=== PATIENT | male | born 1950 | race Caucasian/White ===

== ENCOUNTER 2018-05-04 15:00 | Inpatient (IN) | payer MEDICARE ==
[~2018-05-04] VITALS: Ht 177.8 cm; Wt 94.4 kg
[~2018-05-04 15:00] MED LIST: ASPI-555 PO; LISI40TA4 PO; SIMV40TA5 PO
[2018-05-11 16:26] VITALS: BP 128/74
[2018-05-11 16:34] LABS: APPEARANCE,URINE CLEAR (CLEAR); BILIRUBIN,URINE Negative (NEGATIVE); COLOR,URINE Yellow (YELLOW); GLUCOSE, URINE (UA) Negative (NEGATIVE); KETONES,URINE Negative (NEGATIVE); LEUKOCYTE ESTERASE ,URINE Negative (NEGATIVE); NITRATE,URINE Negative (NEGATIVE); OCCULT BLOOD,URINE Negative (NEGATIVE); PROTEIN,URINE Negative (NEGATIVE)
[2018-05-11] MEDS ORDERED: METO-391 PO (16:41)
[2018-05-11] MEDS: CEFAZOLIN SODIUM 1 GM VIAL IVP SCH (17:00)
[2018-05-12] VITALS (18 sets, daily range): BP systolic 101–125; BP diastolic 55–74
[2018-05-12] MEDS ORDERED: CEFAZOLIN SODIUM 1 GM VIAL ONE ×2 (11:31→14:57)
[2018-05-12] MEDS ORDERED: LACTATED RINGERS 1000ML 1,000 ML IV ONE (11:31)
--- NOTE | 2018-05-12 11:50 | NUR ---
PUPIL OCCURRENCE: PATIENT STATED HAD LASIX ABOUT 15 YEARS AGO.
--- NOTE | 2018-05-12 11:50 | NUR ---
POTENTIAL FOR INFECTION: LEFT HIP / UPPER LEFT LEG SHAVED AND WIPED WITH CHRISTINA PER MARIA T GEORGES.
[2018-05-12] MEDS ORDERED: TRANEXAMIC ACID 1000MG/10ML IV ONE ×2 (14:57→19:37)
[2018-05-12] MEDS ORDERED: METOCLOPRAMIDE 10 MG/2 ML VIAL ONE (15:05)
[2018-05-12] MEDS ORDERED: OXYCODONE HCL 10 MG TAB.SR.12H PO ONE (15:06)
[2018-05-12] MEDS ORDERED: CELECOXIB 200 MG CAP ONE (15:06)
[2018-05-12] MEDS ORDERED: KETOROLAC TROMETHAMINE 15MG/ML ONE (15:06)
[2018-05-12] MEDS ORDERED: ACETAMINOPHEN EXTRA STRENGTH 500 MG TABLET ONE (15:06)
[2018-05-12] MEDS ORDERED: MIDAZOLAM HCL 1 MG/ML 2ML VIAL ONE (15:31)
[2018-05-12] MEDS ORDERED: ROPIVACAINE 0.5% 5MG/ML 30ML IJ ONE (15:35)
[2018-05-12] MEDS ORDERED: LIDOCAINE PF 2% 5ML ABBOJECT ONE (15:36)
[2018-05-12] MEDS ORDERED: SUCCINYLCHOLINE 200MG/10ML SYR ONE (15:36)
[2018-05-12] MEDS ORDERED: PROPOFOL 10 MG/ML 20ML VIAL IV ONE (15:39)
[2018-05-12] MEDS ORDERED: ONDANSETRON HCL 4 MG/2 ML VIAL ONE (15:40)
[2018-05-12] MEDS ORDERED: ROCURONIUM 10MG/1ML SYR 10 MG/ML ML ONE ×3 (15:41→18:22)
[2018-05-12] MEDS ORDERED: FENTANYL CITRATE PF 50 MCG/1 ML 2ML VIAL ONE (15:42)
[2018-05-12] MEDS ORDERED: EPHEDRINE SULFATE 50 MG/ML AMPULE ONE (15:45)
[2018-05-12] MEDS: CEFAZOLIN SODIUM 1 GM VIAL IVP SCH ×2 (16:20→23:08)
[2018-05-12] MEDS ORDERED: CEFAZOLIN SODIUM 1 GM VIAL IRRIG ONE (16:50)
[2018-05-12] MEDS ORDERED: CALCIUM CARBONATE 500 MG TABLET PO PRN (19:00)
[2018-05-12] MEDS ORDERED: LIDOCAINE HCL-MPF 1% 2ML VIAL IVP PRN (19:00)
[2018-05-12] MEDS ORDERED: DiphenhydrAMINE HCL 50 MG/ML VIAL IVP PRN (19:00)
[2018-05-12] MEDS ORDERED: TRAMADOL HCL 50 MG TABLET PO PRN (19:00)
[2018-05-12] MEDS ORDERED: ONDANSETRON HCL 4 MG/2 ML VIAL IVP PRN (19:00)
[2018-05-12] MEDS ORDERED: POTASSIUM CHLORIDE 10% ELIXIR 20 MEQ/15 ML UDCUP PO PRN (19:00)
[2018-05-12] MEDS ORDERED: POTASSIUM CHLORIDE 20MEQ/100ML 100 ML IV PRN (19:00)
[2018-05-12] MEDS ORDERED: FERROUS FUMARATE 324 MG TABLET PO PRN (19:00)
[2018-05-12] MEDS ORDERED: OXYCODONE HCL 5 MG TAB PO PRN (19:00)
[2018-05-12] MEDS ORDERED: POTASSIUM CHLORIDE 20 MEQ ERTAB PO PRN (19:00)
[2018-05-12] MEDS ORDERED: KETOROLAC TROMETHAMINE 15MG/ML IV PRN (19:00)
[2018-05-12] MEDS ORDERED: GLYCOPYRROLATE 1 MG/5 ML SYRINGE ONE (19:07)
[2018-05-12] MEDS ORDERED: NEOSTIGMINE 5MG/5ML SYR IV ONE (19:08)
--- NOTE | 2018-05-12 20:30 | NUR ---
POST OP PATIENT ARRIVED FROM PACU AAOX3 BUT DROWSY WITH O2 AT 3 LPM VIA NC. REILYL DRESSING TO LEFT HIP DRY AND INTACT WITH NO LEAKS. PATIENT DOES SUFFER FROM PSORIASIS TO MAJOR PARTS OF HIS BODY. NO COMPPA Addendum: 05/12/18 at 2105 by JAVID HERMOSILLO RN RN NO COMPLAINTS OR QUESTIONS AT THIS TIME.
[2018-05-12] MEDS: SODIUM CHLORIDE 0.9% 1000ML 1,000 ML IV SCH (21:17)
[2018-05-12] MEDS: PREGABALIN 25 MG CAP PO SCH (21:23)
[2018-05-12] MEDS: ASPIRIN 325 MG TABLET PO SCH (21:23)
[2018-05-12] MEDS: FAMOTIDINE 20MG TAB 20 MG TAB PO SCH (21:23)
[2018-05-12] MEDS: CELECOXIB 200 MG CAP PO SCH (21:23)
[2018-05-12] MEDS: ACETAMINOPHEN EXTRA STRENGTH 500 MG TABLET PO SCH (21:24)
[2018-05-12] MEDS: OXYCODONE HCL 5 MG TAB PO PRN (23:13)
[2018-05-13] VITALS: BP 118/83
[2018-05-13] MEDS: ACETAMINOPHEN EXTRA STRENGTH 500 MG TABLET PO SCH ×3 (03:57→18:18)
[2018-05-13 04:00] VITALS: BP 112/63
[2018-05-13 04:40] LABS: HEMATOCRIT 43.3 % (42-54); MEAN CORPUSCULAR HEMOGLOBIN 34.3 pg (27.0-33.0); MEAN CORPUSCULAR HGB CONC 33.3 g/dL (32.0-36.0); PLATELET COUNT (AUTO) 129 K/uL (130-400); RED CELL DISTRIBUTION WIDTH 15.7 % (11.0-15.5); WHITE BLOOD COUNT (AUTO) 17.4 K/uL (4.8-10.8)
[2018-05-13 04:59] LABS: POTASSIUM 4.9 mmol/L (3.5-5.1)
[2018-05-13] MEDS: SODIUM CHLORIDE 0.9% 1000ML 1,000 ML IV SCH ×2 (04:59→14:59)
[2018-05-13 08:00] VITALS: BP 109/73
[2018-05-13] MEDS: Metoprolol Succinate 50 MG PO SCH (09:00)
[2018-05-13] MEDS: TAMSULOSIN HCL 0.4 MG CAP.ER.24H PO SCH (09:00)
[2018-05-13] MEDS: CEFAZOLIN SODIUM 1 GM VIAL IVP SCH (09:30)
[2018-05-13] MEDS: CELECOXIB 200 MG CAP PO SCH ×2 (09:32→21:35)
[2018-05-13] MEDS: POLYETHYLENE GLYCOL 3350 17 GM POWD.PACK PO SCH (09:32)
[2018-05-13] MEDS: ASPIRIN 325 MG TABLET PO SCH ×2 (09:33→21:35)
[2018-05-13] MEDS: SIMVASTATIN 20 MG TABLET PO SCH (09:33)
[2018-05-13] MEDS: LISINOPRIL 40 MG TABLET PO SCH (09:34)
[2018-05-13] MEDS: PREGABALIN 25 MG CAP PO SCH ×2 (09:34→21:35)
[2018-05-13] MEDS: FAMOTIDINE 20MG TAB 20 MG TAB PO SCH ×2 (09:34→21:35)
[2018-05-13] MEDS: OXYCODONE HCL 5 MG TAB PO PRN ×2 (09:35→21:35)
--- NOTE | 2018-05-13 09:35 | NUR ---
DCP CM met with pt discussed dc plans. Pt is independent prior to surgery, lives at home with spouse. Has a standard walker no wheels that pt inherited from his Dad and a brand new bedside commode pt bought prior to surgery. Denies any other equipments/services. Pt feels safe to go back home. Agreeable for home w/HH and DME JEREMIAS signed for [facility] and [facility]. Faxed clinicals and order to [facility] and [facility] for new standard walker no wheels. Pending ins approval and delivery. DC plan to home w/HH and DME. CM to cont to follow up. Addendum: 05/13/18 at 1208 by JANES BURDICK LVN CM Amended: Links added.
[2018-05-13 11:47] VITALS: BP 92/57
[2018-05-13 16:00] VITALS: BP 113/69
[2018-05-13 21:03] VITALS: BP 95/63
[2018-05-14 00:11] VITALS: BP 116/67
[2018-05-14] MEDS: ACETAMINOPHEN EXTRA STRENGTH 500 MG TABLET PO SCH ×2 (02:13→11:10)
[2018-05-14 04:00] VITALS: BP 129/63
[2018-05-14 07:03] LABS: BASOPHILS % (AUTO) 0.5 % (0.0-5.0); EOSINOPHILS % (AUTO) 1.9 % (0.0-8.0); HEMATOCRIT 37.9 % (42-54); LYMPHOCYTES % (AUTO) 14.5 % (21.0-51.0); MEAN CORPUSCULAR HEMOGLOBIN 35.1 pg (27.0-33.0); MEAN CORPUSCULAR HGB CONC 33.8 g/dL (32.0-36.0); MEAN CORPUSCULAR VOLUME 103.8 fL (79-99); MONOCYTES % (AUTO) 7.1 % (3.0-13.0); PLATELET COUNT (AUTO) 142 K/uL (130-400); RED BLOOD CELL COUNT(AUTO) 3.65 MIL/uL (4.50-6.20); RED CELL DISTRIBUTION WIDTH 15.4 % (11.0-15.5); WHITE BLOOD COUNT (AUTO) 12.2 K/uL (4.8-10.8)
[2018-05-14 08:16] VITALS: BP 110/73
[2018-05-14] MEDS: POLYETHYLENE GLYCOL 3350 17 GM POWD.PACK PO SCH (08:48)
[2018-05-14] MEDS: FAMOTIDINE 20MG TAB 20 MG TAB PO SCH (08:49)
[2018-05-14] MEDS: TAMSULOSIN HCL 0.4 MG CAP.ER.24H PO SCH (08:49)
[2018-05-14] MEDS: SIMVASTATIN 20 MG TABLET PO SCH (08:49)
[2018-05-14] MEDS: CELECOXIB 200 MG CAP PO SCH (08:49)
[2018-05-14] MEDS: PREGABALIN 25 MG CAP PO SCH (08:50)
[2018-05-14] MEDS: LISINOPRIL 40 MG TABLET PO SCH (08:50)
[2018-05-14] MEDS: ASPIRIN 325 MG TABLET PO SCH (08:50)
[2018-05-14] MEDS: Metoprolol Succinate 50 MG PO SCH (08:52)
--- NOTE | 2018-05-14 09:20 | NUR ---
PT NOTE: PATIENT/FAMILY INSTRUCTED ON SAFE DISTANCE TO WALK AND THE IMPORTANCE OF NOT OVER DOING IT WITH AMBULATION DISTANCE. PATIENT DEMO'D SAFETY AND PHYSICAL CAPABILITY WITH STAIR ASCENDING/DESCENDING 12 STEPS. PATIENT REPORTS HE WILL BE SLEEPING DOWNSTAIRS ONCE HE GETS HOME BUT HE WAS ADVISED NOT TO ASCEND/DESCEND 12 STEPS AT HOME IF HE DOES NOT HAVE TO. Addendum: 05/14/18 at 1031 by DANIEL HERNANDEZ PT Amended: Links added.
--- NOTE | 2018-05-14 09:53 | NUR ---
CM Note: [facility] approved and accepted Spoke to [facility]/ . Pt has approval and acceptance. Primary nurse aware to give report once pt ready. Pt safe to dc via private car once equipment delivered. CM to cont to follow up.
--- NOTE | 2018-05-14 09:54 | NUR ---
CM Note: [facility] approved wkr, pending delivery Spoke to Alysia dorado/[facility]. As per [facility] approved only for standard walker, per medicare only one equipment approved. Pt purchased own 3in1 chair privately prior to surgery. Pending standard walker no wheels to be delivered in pt's room. Primary nurse aware. CM to cont to follow up.
[2018-05-14] MEDS ORDERED: ASPI-1012 PO (11:30)
[2018-05-14] MEDS ORDERED: HYDR-4457 PO (11:30)
[2018-05-14 12:00] VITALS: BP 104/66
--- NOTE | 2018-05-14 12:00 | NUR ---
CM Note: [facility] delivered standard walker no wheels in pt's room. Pt safe to dc via private car. Primary nurse aware. CM to cont to follow up.
--- NOTE | 2018-05-14 14:40 | NUR ---
DISCHARGE DISCHARGE TEACHING DONE WITH PATIENT AND USING TEACHBACK METHOD, VERBALIZED UNDERSTANDING. NO NOTED SOB OR DISTRESS. PT AWARE OF NEED TO ATTEND DR. AVITIA APPOINTMENT. NEW MEDICATION ADMINISTRATION TEACHING DONE WITH PATIENT AND USING TEACHBACK METHOD. REILLY DRESSING CHANGED ORDERED, INCISION IS DRY AND INTACT. REILLY DRESSING TEACHING DONE WITH PATIENT AND FAMILY, VERBALIZED UNDERSTANDING. IV REMOVED, CATH TIP INTACT. REPORT CALLED TO [facility]. PENDING TO BE TRANSFERRED OUT VIA PRIVATE VEHICLE.
[2018-05-15] MEDS ORDERED: BISACODYL 10 MG SUPP.RECT RC PRN (19:00)
== END 2018-05-14 15:00 | disposition home health service (06) | DRG 470 ==
LOC: EDSTATUS 15:00 → DAHIP 05-12 09:43 → 4AH 05-12 20:30
PROVIDERS: ADMIT Orthopaedic Surgery; ATTEND Orthopaedic Surgery
PROC: 0SRB0JZ Replacement of Left Hip Joint with Synthetic Substitute, Open Approach (ICD-10-PCS; principal; 2018-05-12 15:33)
PROC: 3E0T3BZ Introduction of Anesthetic Agent into Peripheral Nerves and Plexi, Percutaneous Approach (ICD-10-PCS; 2018-05-12 15:33)
DX: M16.7 Other unilateral secondary osteoarthritis of hip (principal); E78.5 Hyperlipidemia, unspecified; L40.50 Arthropathic psoriasis, unspecified; G89.29 Other chronic pain; I10 Essential (primary) hypertension; Z82.0 Family history of epilepsy and other diseases of the nervous system; Z82.3 Family history of stroke; Z87.09 Personal history of other diseases of the respiratory system
CPT/HCPCS: 36415; 73503; 80048; 81003; 85025; 85027; 88304; 88311; 93005; 96374; 96375; 97039; A4218; C1776; G0378; J0330; J0690; J1885; J2001; J2250; J2405; J2704; J2710; J2765; J2795; J3010; J3490; J7030; J7120

== ENCOUNTER → 2023-02-03 | Outpatient (CLI) | payer MEDICARE ==
[~2023-02-03] MED LIST changes: +ASPI-1012 PO; -ASPI-555 PO; +HYDR-4457 PO; -LISI40TA4 PO; +LISI40TA9 PO; +METO-391 PO; +SIMV-46 PO; -SIMV40TA5 PO
== END | disposition home or self-care (01) ==
LOC: SHCH 14:04
PROVIDERS: ATTEND Internal Medicine
DX: I11.9 Hypertensive heart disease without heart failure (principal); R55 Syncope and collapse; E78.5 Hyperlipidemia, unspecified
CPT/HCPCS: 93306